=== PATIENT | male | born 1970 | race Caucasian/White ===

== ENCOUNTER 2017-01-08 22:23 | Emergency (ER) | payer OTHER ==
[~2017-01-08] VITALS: Ht 165.1 cm; Wt 82.6 kg
[2017-01-08 22:25] VITALS: BP 140/93
--- NOTE | 2017-01-08 22:39 | NUR ---
PT TAKEN TO XRAY
--- NOTE | 2017-01-08 22:43 | NUR ---
PT RETURN FROM XRAY TO LOBBY
--- NOTE | 2017-01-08 23:54 | NUR ---
PT TAKEN TO BED 4
--- NOTE | 2017-01-09 00:09 | NUR ---
46Y/M PATIENT PRESENTS AT ED WITH C/O CHEST PAIN X 1 DAY. PATIENT STATES HAD SOB AND CHEST PAIN YESTERDAY, WORSENING TODAY. PT STATES IT FEELS LIKE A PRESSURE ON HIS CHEST BUT DENIES ANY RADIATING PAIN. HX DM, DENIES N/V/D; SKIN IS PINK/WARM/DRY; AAOX4 WITH EVEN AND STEADY GAIT; LUNGS CLEAR BL; HR EVEN AND REGULAR; PT DENIES ANY FEVER, SOB, OR COUGH AT THIS TIME; PATIENT STATES PAIN OF 5/10 AT THIS TIME; VSS; PATIENT POSITIONED FOR COMFORT; HOB ELEVATED; BEDRAILS UP X2; BED DOWN. ER MD MADE AWARE OF PT STATUS.
--- NOTE | 2017-01-09 02:15 | NUR ---
Dr. Garibay evaluating patient at bedside.
[2017-01-09 03:24] VITALS: BP 139/73
--- NOTE | 2017-01-09 03:24 | NUR ---
Patient discharged with v/s stable. Written and verbal after care instructions given and explained. Patient alert, oriented and verbalized understanding of instructions. Ambulatory with steady gait. All questions addressed prior to discharge. ID band removed. Patient advised to follow up with PMD. Rx of MOTRIN 800 MG given. Patient educated on indication of medication including possible reaction and side effects. Opportunity to ask questions provided and answered.
== END 2017-01-09 03:24 | disposition home or self-care (01) ==
LOC: MED 22:23
DX: R07.89 Other chest pain (principal); R06.02 Shortness of breath; E11.9 Type 2 diabetes mellitus without complications; I10 Essential (primary) hypertension

== ENCOUNTER 2018-06-19 22:55 | Emergency (ER) | payer OTHER ==
[~2018-06-19] VITALS: Ht 165.1 cm; Wt 80.7 kg
[2018-06-19 23:00] VITALS: BP 128/77
--- NOTE | 2018-06-19 23:06 | NUR ---
TO BED # 1 AMBULATORY , REPORT GIVEN TO TAI GO
--- NOTE | 2018-06-19 23:10 | NUR ---
ASSUMED CARE OF PT AT THIS TIME. C/O QUIGLEY X 3 DAYS. AAOX4 WITH EVEN AND STEADY GAIT; PATIENT STATES PAIN OF 4/10; VSS; PATIENT POSITIONED FOR COMFORT; HOB ELEVATED; BEDRAILS UP X2; BED DOWN. ER MD MADE AWARE OF PT STATUS. WILL CONTINUE TO MONITOR.
--- NOTE | 2018-06-20 01:10 | NUR ---
PT RESTING COMFORTABLY. PT AWAITS MD CALVO. DIEGO. VSS. WILL CONTINUE TO MONITOR.
[2018-06-20] MEDS ORDERED: ACETAMINOPHEN EXTRA STRENGTH 500 MG TAB PO ONE (01:50)
[2018-06-20] MEDS ORDERED: MECLIZINE 25 MG TAB PO ONE (01:50)
[2018-06-20 02:30] LABS: ALBUMIN 4.2 g/dL (3.4-5.0); CARBON DIOXIDE 27.3 mmol/L (21-32); CREATININE 1.1 mg/dL (0.7-1.3); POTASSIUM 4.3 mmol/L (3.5-5.1); TOTAL BILIRUBIN 0.3 mg/dL (0.0-1.0)
[2018-06-20 02:37] LABS: HEMATOCRIT 42.7 % (36-52); HEMOGLOBIN 14.3 g/dL (12.0-18.0); MEAN CORPUSCULAR HEMOGLOBIN 30 pg (27-31); MEAN CORPUSCULAR HGB CONC 34 g/dL (33-37); MEAN CORPUSCULAR VOLUME 89.9 fL (80-94); PLATELET COUNT (AUTO) 178 K/uL (140-450); RED BLOOD CELL COUNT(AUTO) 4.75 MIL/uL (4.20-6.10); RED CELL DISTRIBUTION WIDTH 12.6 % (11.6-13.7); WHITE BLOOD COUNT (AUTO) 6.4 K/uL (4.8-10.8)
[2018-06-20 02:38] LABS: BASOPHILS # (AUTO) 0.1 K/uL (0.00-0.22); BASOPHILS % (AUTO) 1.7 % (0.0-2.0); EOSINOPHILS # (AUTO) 0.2 K/uL (0-0.4); EOSINOPHILS % (AUTO) 2.8 % (0.0-4.0); LYMPHOCYTES # (AUTO) 2.5 K/uL (2.0-11.5); MONOCYTES # (AUTO) 0.5 K/uL (0.8-1.0); MONOCYTES % (AUTO) 8.3 % (1.7-9.3); NEUTROPHILS # (AUTO) 3.1 K/uL (1.8-7.7); NEUTROPHILS % (AUTO) 48.2 % (42.2-75.2)
[2018-06-20 02:55] VITALS: BP 122/78
--- NOTE | 2018-06-20 02:55 | NUR ---
Patient discharged with v/s stable. Written and verbal after care instructions given and explained. Patient alert, oriented and verbalized understanding of instructions. Ambulatory with steady gait. All questions addressed prior to discharge. ID band removed. Patient advised to follow up with PMD. Rx of MECLIZINE AND TYLENOL given. Patient educated on indication of medication including possible reaction and side effects. Opportunity to ask questions provided and answered.
== END 2018-06-20 02:55 | disposition home or self-care (01) ==
LOC: MED 22:55
DX: H81.399 Other peripheral vertigo, unspecified ear (principal); R51 Headache; E11.9 Type 2 diabetes mellitus without complications; I10 Essential (primary) hypertension
CPT/HCPCS: 36415; 70450; 80053; 82948; 85025; 99285; J8597

== ENCOUNTER 2018-06-29 03:40 | Emergency (ER) | payer OTHER ==
[~2018-06-29] VITALS: Ht 165.1 cm; Wt 78.0 kg
[2018-06-29 03:56] VITALS: BP 116/71
[2018-06-29] MEDS ORDERED: PIOG1TAB PO (04:06)
[2018-06-29] MEDS ORDERED: DAPA10TA PO (04:06)
[2018-06-29] MEDS ORDERED: METF1000 PO (04:06)
[2018-06-29] MEDS ORDERED: PANT40EC PO (04:06)
[2018-06-29] MEDS ORDERED: IBUP-2213 PO (04:06)
[2018-06-29] MEDS ORDERED: MECL-272 PO (04:06)
[2018-06-29] MEDS ORDERED: FENO145T PO (04:06)
[2018-06-29] MEDS ORDERED: SITA50TA3 PO (04:06)
[2018-06-29] MEDS ORDERED: ROSU20TA PO (04:06)
[2018-06-29] MEDS ORDERED: KETOROLAC 30 MG/ML VIAL IM ONE (04:50)
[2018-06-29] MEDS ORDERED: ACETAMINOPHEN EXTRA STRENGTH 500 MG TAB PO ONE (06:05)
[2018-06-29 06:31] VITALS: BP 114/66
== END 2018-06-29 06:31 | disposition home or self-care (01) ==
LOC: MED 03:40
DX: R51 Headache (principal); R42 Dizziness and giddiness; E11.9 Type 2 diabetes mellitus without complications; I10 Essential (primary) hypertension; Z79.899 Other long term (current) drug therapy
CPT/HCPCS: 82948; 96372; 99283; J1885